=== PATIENT | female | born 1980 ===

== ENCOUNTER 2019-09-25 10:15 | Outpatient (CLI) | payer OTHER | END 2019-09-25 10:22 | disposition home or self-care (01) | LOC: MAMO-SONO 10:15 | PROVIDERS: ATTEND Physical Medicine & Rehabilitation | DX: Z12.31 Encounter for screening mammogram for malignant neoplasm of breast (principal); M75.122 Complete rotator cuff tear or rupture of left shoulder, not specified as traumatic; N64.4 Mastodynia ==